=== PATIENT | male | born 2000 | race Two or more races ===

== ENCOUNTER 2025-09-21 20:08 | Emergency (ER) | payer MEDICAID, SELFPAY ==
[2025-09-21 20:10] VITALS: BMI 25.0
[2025-09-21 20:36] VITALS: BP 123/78; PULSE 72; RESP 16; TEMP 36.8; O2SAT 96
--- NOTE | 2025-09-21 20:51 | EDNOTE_ITS ---
ED Eye Problem RME/HPI General Chief complaint: Eye Problems Stated complaint: POSS METAL PARTICAL IN R EYE Time Seen by Provider: 09/21/25 20:45 Arrival date/time: 09/21/25 20:08 24M with no significant PMH presents to ED with R eye irritation after some water from a pipe went into eye. Patient denies vision changes. Patient does not wear contacts. Limitations: no limitations Related Data Previous Rx's ?Medication ?Instructions ?Recorded erythromycin 5 mg/gram (0.5 %) eye 0.5 inch ophthalmic (eye) QID 7 09/21/25 ointment days #3.5 grams Allergies Allergy/AdvReac Type Severity Reaction Status Date / Time NKA* Allergy Uncoded 09/21/25 20:13 Review of Systems Review of Systems Systems Reviewed: All systems reviewed, normal except as documented Eyes Eyes: Reports as per HPI and Reports irritation Past Medical History Social History SMOKING STATUS: Current every day smoker ED Exam General Limitations: Present no limitations General appearance: Present alert and in no apparent distress Head Head exam: Present atraumatic Eye Eye exam: Present PERRL, EOMI and conjunctival injection (R) Neck Neck exam: Present normal inspection, full ROM and trachea midline Chest Chest inspection: Present normal inspection and symmetric chest wall rise Neurological Exam Neurological exam: Present alert and oriented X3 Psychiatric Psychiatric exam: Present normal affect and normal mood Skin Skin exam: Present warm, dry, intact and normal color Course Quality Measures none Orders Category Date Time Status ED Eye Irrigation ONCE Care 09/21/25 20:45 Active Rojo Lamp to Bedside X1 Care 09/21/25 20:45 Active Erythromycin Op Oint 0.5% Med 09/21/25 20:45 Discontinued 1 gm RIGHT EYE X1 ONE Fluorescein Sodium [Bio-Tigist] Med 09/21/25 20:45 Discontinued 1 mg RIGHT EYE X1 ONE Vital Signs Vital signs: Vital Signs Temperature 98.2 F 09/21/25 20:36 Pulse Rate 72 09/21/25 20:36 Respiratory Rate 16 09/21/25 20:36 Blood Pressure 123/78 09/21/25 20:36 Pulse Oximetry (%) 96 09/21/25 20:36 Oxygen Delivery Method Room Air 09/21/25 20:36 O2 at 96% on RA and WNLs Eye MDM Narrative MDM Narrative:: 24M with no significant PMH presents to ED with R eye irritation after some water from a pipe went into eye. Patient denies vision changes. Patient does not wear contacts. Physical exam reveals no gross FB in eye. R eye conjunctivitis. Normal pupil response and EOM. Patient is afebrile, calm, and alert. Wood's lamp exam reveals mild R eye corneal abrasion. Eye irrigation, ABX prophylaxis, and peer financial counselor given. Patient data External records reviewed:: None Clinical information provided by:: patient Social determinants that could affect healthcare access:: none Patient has the following chronic illnesses:: none How is presenting disease/condition affected by chronic disease/condition?: no chronic disease Evaluation data The following diagnostics were reviewed and interpreted by me:: other (specify) (none) Lab and/or radiology exams considered but not ordered:: not ordered Interpretation Summary: n/a Medications / Prescriptions Medications or Prescriptions considered but not ordered:: ordered Medication administrations:: Medication Administration History Discontinued Medications Erythromycin (Erythromycin Op Oint 0.5% 1 Gm Packet) 1 gm RIGHT EYE X1 ONE Stop: 09/21/25 20:46 Last Admin: 09/21/25 20:56 Dose: 1 gm Documented By: Co-signed By: CVL Fluorescein Sodium (Fluorescein Sod 1 Mg Strp) 1 mg RIGHT EYE X1 ONE Stop: 09/21/25 20:46 Last Admin: 09/21/25 20:56 Dose: 1 mg Documented By: above Consultations Consultation(s) initiated? (list below): No Diagnosis Eye Problem Differential Diagnosis: corneal abrasion, conjunctivitis, acute iritis, hyphema, periorbital cellulitis, subconjunctival hemorrhage, glaucoma, corneal ulcer and ruptured globe Most likely diagnosis given after review of the tests above:: corneal abrasion Admission Indicated Admission indicated?: not indicated Admission Request Was there a request for admission?: No Disposition Plan Disposition Plan: Discharge Discharge Attestation Discharge Attestation: The patient and all family members were given an opportunity to ask questions and understood the discharge instructions. Discharge instructions specifically effects, indications for sooner follow up or return to the emergency department, and the expected course of current diagnosis. Patient condition: Stable Discharge Plan Plan Patient Disposition: HOME (Self Care) Discharge Disposition comment: Stable Prescriptions/Referrals Prescriptions/Med Rec: New erythromycin 5 mg/gram (0.5 %) ointment 0.5 inch ophthalmic (eye) QID 7 Days Qty: 3.5 0RF Problem List Clinical Impression: Corneal abrasion Patient/Caregiver Discharge Instructions Education Materials: ED Corneal Abrasion Additional Instructions: Please follow-up with PCP within 24-48 hours and return immediately if symptoms worsen. See eye doctor in the next few days. Print Language: Israeli Stand Alone Forms: Patient Portal Info Letter PA/TEX Supervising Physician GARRISON/TEX Supervising Physician: Dr. Vazquez
[2025-09-21] MEDS: Erythromycin Op Oint 0.5% 1 GM PACKET RIGHT EYE (20:56)
[2025-09-21] MEDS: FLUORESCEIN SOD 1 MG STRP RIGHT EYE (20:56)
== END 2025-09-21 21:09 | disposition home or self-care (01) ==
LOC: SERX 21:15
PROVIDERS: Emergency Provider Emergency Medicine; PCP Physician Assistant
DX: S05.00XA Injury of conjunctiva and corneal abrasion without foreign body, unspecified eye, initial encounter (principal); X58.XXXA Exposure to other specified factors, initial encounter
CPT/HCPCS: 99282; A9270